=== PATIENT | male | born 1980 | race Caucasian/White ===

== ENCOUNTER 2021-09-22 03:53 | Inpatient (IN) ==
[2021-09-22 04:40] LABS: ABG Base Excess -3 mEq/L (-2 to 3); ABG HCO3 24 mEq/L (21-27); ABG Oxygen Saturation 88 % (95-98); ABG PCO2 47 mmHg (35-45); ABG PH 7.31 pH Units (7.32-7.45); ABG PO2 60 mmHg (85-104); ABG TCO2 25 mEq/L (20-26)
[2021-09-22 08:07] LABS: Basophils % 0.5 %; Eosinophils % 0.5 %; Hematocrit 43.8 % (37.5-50.1); Hemoglobin 14.3 g/dL (12.9-16.9); Immature Granulocytes % 0.5 % (0-4); Lymphocytes # 0.3 K/mcL (0.6-4.6); Lymphocytes % 13.8 %; Mean Corpuscular HGB Conc 32.6 g/dL (31.6-35.5); Mean Corpuscular Hemoglobin 28.7 pg (28.0-33.3); Mean Platelet Volume 9.4 fL (9.4-12.4); Monocytes # 0.1 K/mcL (0.0-1.3); Monocytes % 5.7 %; Neutrophils # 1.7 K/mcL (1.6-8.9); Platelet Count 149 K/mcL (140-400); Red Blood Count 4.98 M/mcL (4.19-5.50); Red Cell Distribution Width 12.9 % (11.5-14.5); White Blood Count 2.1 K/mcL (4.3-11.1)
[2021-09-22 08:25] LABS: BUN/Creatinine Ratio 23 (6-26); Blood Urea Nitrogen 16 mg/dL (6-20); Calcium 8.9 mg/dL (8.6-10.3); Carbon Dioxide 26 mEq/L (23-29); Chloride 103 mEq/L (98-107); Glucose 70 mg/dL (70-105); Osmolality,Calculated 282 (280-300); Sodium 136 mEq/L (136-145); eGFR For African Americans > 60 (> 60); eGFR For Non-African Americans > 60 (> 60)
[2021-09-22 08:27] LABS: Troponin I 0.04 ng/mL (< 0.04)
[2021-09-22 09:03] LABS: Influenza A PCR Negative (Negative); Influenza B PCR Negative (Negative); Resp. Syncytial Virus PCR Negative (Negative)
[2021-09-22 09:06] LABS: SARS-CoV-2 by PCR (In House) Positive (Negative)
[2021-09-22] MEDS ORDERED: Acetaminophen 325 MG TABLET PO PRN (09:20)
[2021-09-22] MEDS ORDERED: Naloxone 0.4 MG/ML INJ IVP PRN (09:21)
[2021-09-22] MEDS ORDERED: Ondansetron 4 MG/2 ML VIAL IVP PRN (09:21)
[2021-09-22] MEDS ORDERED: Benzonatate 100 MG CAPSULE PO PRN (09:40)
[2021-09-22] MEDS ORDERED: 0.9 % Sodium Chloride 500 ML IVC ONE (09:41)
[2021-09-22] MEDS ORDERED: Isovue-370 500 ML BOTTLE IVP ONE (09:46)
[2021-09-22 10:23] LABS: Alanine Aminotransferase 24 Units/L (7-52); Albumin 3.8 g/dL (3.5-5.7); Albumin/Globulin Ratio 1.4 (1.1-2.2); Alkaline Phosphatase 71 Units/L (34-104); Aspartate Amino Transferase 30 Units/L (13-39); Bilirubin,Direct 0.1 mg/dL (0.0-0.2); Bilirubin,Indirect 0.4 mg/dL (0.0-1.0); Bilirubin,Total 0.5 mg/dL (0.3-1.0); Globulin 2.8 g/dL (2.4-3.5); Total Protein 6.6 g/dL (6.4-8.9)
[2021-09-22 10:24] LABS: C-Reactive Protein 31 mg/L (Less than 10); Lactate Dehydrogenase 224 Units/L (140-271)
[2021-09-22] MEDS: Aspirin 325 MG TABLET PO ONE ×2 (10:53→14:55)
[2021-09-22] MEDS: Nicotine 21 MG PATCH.TD24 TD SCH (11:01)
[2021-09-22] MEDS: Ipratropium 1 PUFF INHALER IH SCH ×4 (11:24→23:49)
[2021-09-22] MEDS ORDERED: Remdesivir 200 MG in 0.9 % Sodium Chloride 100 ML IVPB ONE (12:00)
[2021-09-22 16:22] LABS: Amphetamine Screen,Urine Positive ng/mL (Cutoff=1000); Barbiturate Screen,Urine Negative ng/mL (Cutoff=200); Benzodiazepines Screen,Urine Negative ng/mL (Cutoff=200); Cannabinoid Screen,Urine Positive ng/mL (Cutoff = 50); Cocaine Screen,Urine Negative ng/mL (Cutoff= 300); Opiate Screen,Urine Negative ng/mL (Cutoff=300); Phencyclidine Screen,Urine Negative ng/mL (Cutoff=25)
[2021-09-23 02:05] LABS: Alanine Aminotransferase 17 Units/L (7-52); Albumin 3.6 g/dL (3.5-5.7); Albumin/Globulin Ratio 1.4 (1.1-2.2); Alkaline Phosphatase 52 Units/L (34-104); Aspartate Amino Transferase 17 Units/L (13-39); BUN/Creatinine Ratio 26 (6-26); Bilirubin,Total 0.5 mg/dL (0.3-1.0); Blood Urea Nitrogen 15 mg/dL (6-20); Calcium 8.9 mg/dL (8.6-10.3); Carbon Dioxide 26 mEq/L (23-29); Chloride 102 mEq/L (98-107); Globulin 2.6 g/dL (2.4-3.5); Glucose 135 mg/dL (70-105); Osmolality,Calculated 281 (280-300); Potassium 3.8 mEq/L (3.5-5.1); Sodium 134 mEq/L (136-145); Total Protein 6.2 g/dL (6.4-8.9); eGFR For African Americans > 60 (> 60); eGFR For Non-African Americans > 60 (> 60)
[2021-09-23 02:15] LABS: Basophils % 0.1 %; Hematocrit 38.1 % (37.5-50.1); Immature Granulocytes % 0.5 % (0-4); Lymphocytes # 0.6 K/mcL (0.6-4.6); Lymphocytes % 7.4 %; Mean Corpuscular HGB Conc 32.3 g/dL (31.6-35.5); Mean Corpuscular Hemoglobin 28.7 pg (28.0-33.3); Mean Corpuscular Volume 88.8 fL (83.0-100.0); Mean Platelet Volume 9.7 fL (9.4-12.4); Monocytes # 0.6 K/mcL (0.0-1.3); Monocytes % 7.3 %; Neutrophils # 6.4 K/mcL (1.6-8.9); Platelet Count 150 K/mcL (140-400); Red Blood Count 4.29 M/mcL (4.19-5.50); Red Cell Distribution Width 12.9 % (11.5-14.5); Segmented Neutrophils % 84.7 %
[2021-09-23 02:22] LABS: Hemoglobin 12.3 g/dL (12.9-16.9); White Blood Count 7.5 K/mcL (4.3-11.1)
[2021-09-23] MEDS: Ipratropium 1 PUFF INHALER IH SCH ×6 (03:26→23:56)
[2021-09-23] MEDS: *HR* Enoxaparin 40 MG/0.4 ML SYRINGE SQ SCH (05:27)
[2021-09-23] MEDS: Nicotine 21 MG PATCH.TD24 TD SCH (07:56)
[2021-09-23] MEDS ORDERED: *HR* LORazepam 2 MG/ML VIAL IVP PRN ×3 (10:11)
[2021-09-23] MEDS: Folic Acid 1 MG TABLET PO SCH (10:25)
[2021-09-23] MEDS: Remdesivir 100 MG in 0.9 % Sodium Chloride 100 ML IVPB SCH (10:25)
[2021-09-23] MEDS: Thiamine (B-1) 100 MG TABLET PO SCH (10:25)
[2021-09-24 00:52] LABS: Ferritin 120 ng/mL (20-250)
[2021-09-24 02:43] LABS: Basophils % 0.2 %; Eosinophils % 0.2 %; Hematocrit 39.3 % (37.5-50.1); Hemoglobin 13.1 g/dL (12.9-16.9); Immature Granulocytes % 1.3 % (0-4); Lymphocytes # 0.9 K/mcL (0.6-4.6); Lymphocytes % 11.3 %; Mean Corpuscular HGB Conc 33.3 g/dL (31.6-35.5); Mean Corpuscular Hemoglobin 29.4 pg (28.0-33.3); Mean Corpuscular Volume 88.3 fL (83.0-100.0); Monocytes # 0.7 K/mcL (0.0-1.3); Monocytes % 8.6 %; Neutrophils # 6.4 K/mcL (1.6-8.9); Platelet Count 207 K/mcL (140-400); Red Blood Count 4.45 M/mcL (4.19-5.50); Red Cell Distribution Width 12.8 % (11.5-14.5); Segmented Neutrophils % 78.4 %; White Blood Count 8.2 K/mcL (4.3-11.1)
[2021-09-24 02:52] LABS: BUN/Creatinine Ratio 27 (6-26); Blood Urea Nitrogen 18 mg/dL (6-20); C-Reactive Protein 125 mg/L (Less than 10); Calcium 9.4 mg/dL (8.6-10.3); Carbon Dioxide 26 mEq/L (23-29); Chloride 103 mEq/L (98-107); Glucose 117 mg/dL (70-105); Osmolality,Calculated 287 (280-300); Potassium 3.7 mEq/L (3.5-5.1); Sodium 137 mEq/L (136-145); eGFR For African Americans > 60 (> 60); eGFR For Non-African Americans > 60 (> 60)
[2021-09-24] MEDS: Ipratropium 1 PUFF INHALER IH SCH (05:37)
[2021-09-24] MEDS ORDERED: Ipratropium 1 PUFF INHALER IH PRN (05:41)
[2021-09-24] MEDS: *HR* Enoxaparin 40 MG/0.4 ML SYRINGE SQ SCH (06:01)
[2021-09-24 07:43] VITALS: BP 115/79; PULSE 91; TEMP 98.2; O2SAT 97
[2021-09-24] MEDS: Thiamine (B-1) 100 MG TABLET PO SCH (10:00)
[2021-09-24] MEDS: Folic Acid 1 MG TABLET PO SCH (10:00)
[2021-09-24] MEDS: Nicotine 21 MG PATCH.TD24 TD SCH (10:01)
[2021-09-24] MEDS: Remdesivir 100 MG in 0.9 % Sodium Chloride 100 ML IVPB SCH (10:30)
== END 2021-09-24 10:30 | disposition left against medical advice (07) | DRG 720 ==
LOC: EMEROOARM 03:53 → 3BNU 03:53 → SUATTDRO 10:05 → 3BNU 11:14
PROVIDERS: ADMIT Family Medicine; ATTEND General Practice